=== PATIENT | male | born 1960 | race Caucasian/White ===

== ENCOUNTER → 2023-10-01 | Emergency (ER) | payer OTHER ==
[~2023-10-01] MED LIST: ASPIRIN 81 MG CHEWABLE TABLET ONE; CLOPIDOGREL 75 MG TABLET ONE; HEPARIN 5000 UNIT/ML 1 ML VIAL ONE; HEPARIN/D5W 25,000 UNIT/500 ML BAG IV ONE; MORPHINE 4 MG/ML SYR ONE; NA CHLORIDE 0.9% 1,000 ML ONE; ONDANSETRON 4 MG/2 ML VIAL ONE; TENECTEPLASE 50 MG/10 ML VIAL IV ONE
--- OUTSIDE RECORDS SUMMARY | 2023-10-01 00:10 | XMS REPORT | Continuity of Care Document ---
Author Name Unknown Address [address] [address] [address] [place] [address] [facility] Address [address] [address] [address] [place] [address] Care Team Providers Care Clinical Research Manager Name Role Phone Unavailable Unavailable Unavailable Problems Condition Name Condition Details Condition Category Status Onset Date Resolution Date Last Treatment Date Treating Clinician Comments Source Memory loss Memory loss Problem Active [facility] Attention deficit hyperactiv ity disorder (ADHD), predominan tly hyperactiv e type Attention deficit hyperactiv ity disorder (ADHD), predominan tly hyperactiv e type Problem Active [facility] Sinus problem Sinus problem Problem Active [facility] Depression with anxiety Depression with anxiety Problem Active [facility] Anxiety Anxiety Problem Active [facility] Disturbed concentrat ion Disturbed concentrat ion Problem Active [facility] Hypertensi on Hypertensi on Problem Active [facility] Medications Ordered Medication Name Filled Medication Name Start Date Stop Date Current Medication? Ordering Clinician Indication Dosage Frequency Signature (SIG) Comments Components Source Propranolol HCl Propranolol HCl 03-28 00:00: 00 Yes Rekha Banks 1 tablet on an empty stomach [facility] Simvastatin Simvastatin 405 00:00: 00 Yes Rekha Banks 1 tablet in the evening [facility] Amlodipine Besy-Benaze pril HCl Amlodipine Besy-Benaze pril HCl Yes Rekha Banks take 1 capsule by mouth once daily [facility] Paxil Paxil Yes Rekha Banks 1 tablet in the morning [facility] Strattera Strattera Yes Rekha Banks 1 capsule in the morning [facility] Encounters Start Date/Time End Date/Time Encounter Type Admission Type Attending Clinicians Care Facility Care Department Encounter ID Source 2019-03-28 08:40:00 2019-03-28 08:40:00 [facility] [id number] [facility] 2018-12-27 16:02:00 2018-12-27 16:02:00 [facility] [id number] [facility] 2018-12-18 15:30:00 2018-12-18 15:30:00 [facility] [id number] [facility] 2018-10-17 15:30:00 2018-10-17 15:30:00 [facility] [id number] [facility] 2018-03-11 16:00:00 2018-03-11 16:00:00 [facility] [id number] [facility] 2018-02-07 16:00:00 2018-02-07 16:00:00 [facility] [id number] [facility]
--- NOTE | 2023-10-01 00:34 | EDPHYS ---
Physician Documentation [facility] Name: Humble Biggs Age: 63 yrs Sex: Male : 1960 Arrival Date: 10/01/2023 Time: 00:07 Bed 18 Private MD: ED Physician Jose Yee HPI: 10/01 00:22 This 63 yrs old Male presents to ER via Wheelchair with complaints of stemi. jonny 00:22 The patient or guardian reports chest pain that is located primarily in the substernal jonny area. Onset: just prior to arrival. The pain radiates to the left arm, Associated signs and symptoms: Pertinent positives: nausea. The chest pain is described as a heaviness, a pressure. Modifying factors: The symptoms are alleviated by nothing. the symptoms are aggravated by nothing. Severity of pain: At its worst the pain was severe in the emergency department the pain is unchanged. The patient has not experienced similar symptoms in the past. Historical: - Allergies: 00:17 No Known Allergies; lg3 - Home Meds: 00:17 None [Active]; lg3 - PMHx: 00:17 Hypertensive disorder; lg3 - PSHx: 00:17 None; lg3 - Immunization history:: Adult Immunizations up to date, Client reports receiving the 2nd dose of the Covid vaccine, Flu vaccine is not up to date. - Social history:: Smoking status: Patient denies any tobacco usage or history of. Patient/guardian denies using alcohol, street drugs. - Family history:: not pertinent. ROS: 00:22 Constitutional: Negative for fever, chills, and weight loss, Eyes: Negative for injury, jonny pain, redness, and discharge, ENT: Negative for injury, pain, and discharge, Neck: Negative for injury, pain, and swelling, Respiratory: Negative for shortness of breath, cough, wheezing, and pleuritic chest pain, Abdomen/GI: Negative for abdominal pain, nausea, vomiting, diarrhea, and constipation, Back: Negative for injury and pain, : Negative for injury, bleeding, discharge, and swelling, MS/Extremity: Negative for injury and deformity, Skin: Negative for injury, rash, and discoloration, Neuro: Negative for headache, weakness, numbness, tingling, and seizure, Psych: Negative for depression, anxiety, suicide ideation, homicidal ideation, and hallucinations, Allergy/Immunology: Negative for hives, rash, and allergies, Endocrine: Negative for neck swelling, polydipsia, polyuria, polyphagia, and marked weight changes, Hematologic/Lymphatic: Negative for swollen nodes, abnormal bleeding, and unusual bruising, 00:22 Cardiovascular: Positive for chest pain, of the chest, Exam: 00:22 Head/Face: Normocephalic, atraumatic. Eyes: Pupils equal round and reactive to light, jonny extra-ocular motions intact. Lids and lashes normal. Conjunctiva and sclera are non-icteric and not injected. Cornea within normal limits. Periorbital areas with no swelling, redness, or edema. ENT: Nares patent. No nasal discharge, no septal abnormalities noted. Tympanic membranes are normal and external auditory canals are clear. Oropharynx with no redness, swelling, or masses, exudates, or evidence of obstruction, uvula midline. Mucous membranes moist. Neck: Trachea midline, no thyromegaly or masses palpated, and no cervical lymphadenopathy. Supple, full range of motion without nuchal rigidity, or vertebral point tenderness. No Meningismus. Chest/axilla: Normal chest wall appearance and motion. Nontender with no deformity. No lesions are appreciated. Cardiovascular: Regular rate and rhythm with a normal S1 and S2. No gallops, murmurs, or rubs. Normal PMI, no JVD. No pulse deficits. Respiratory: Lungs have equal breath sounds bilaterally, clear to auscultation and percussion. No rales, rhonchi or wheezes noted. No increased work of breathing, no retractions or nasal flaring. Abdomen/GI: Soft, non-tender, with normal bowel sounds. No distension or tympany. No guarding or rebound. No evidence of tenderness throughout. Back: No spinal tenderness. No costovertebral tenderness. Full range of motion. Male : Normal genitalia with no discharge or lesions. Skin: Warm, dry with normal turgor. Normal color with no rashes, no lesions, and no evidence of cellulitis. MS/ Extremity: Pulses equal, no cyanosis. Neurovascular intact. Full, normal range of motion. Neuro: Awake and alert, GCS 15, oriented to person, place, time, and situation. Cranial nerves II-XII grossly intact. Motor strength 5/5 in all extremities. Sensory grossly intact. Cerebellar exam normal. Normal gait. Psych: Awake, alert, with orientation to person, place and time. Behavior, mood, and affect are within normal limits. 00:22 Constitutional: The patient appears in obvious distress, moderately distressed, 00:33 ECG was reviewed by the Attending Physician. jonny 00:34 ECG was reviewed by the Attending Physician. [facility] Vital Signs: 00:15 BP 158 / 105; Pulse 83; Resp 24; Temp 98.7(O); Pulse Ox 98% on 2 lpm NC; Weight 80.74 lg3 kg (M); Height 5 ft. 9 in. (R); Pain 6/10; 00:15 Body Mass Index 26.29 (80.74 kg, 175.26 cm) lg3 00:15 Pain Scale: Adult lg3 MDM: 00:15 Patient medically screened. jonny 00:27 Differential diagnosis: abnormal EKG, acute myocardial infarction, acute pericarditis, jonny anxiety, coronary artery disease chest wall pain, congestive heart failure costochondritis, esophagitis, peptic ulcer disease, pneumonia, pulmonary embolus, stable angina, thoracic aortic disection, unstable angina. HEART Score: History: Highly Suspicious (2), ECG: Significant ST-deviation (2), Age: > or = 65 years (2), Risk Factors: > or = 3 Risk factors for atherosclerotic disease (2), [Hypercholesterolemia] [Hypertension] [+ Family HX] Troponin: < or = 1 x Normal Limit (0). The patient was given aspirin in the Emergency Department. VALERY Risk Score: 1 - patient's age is greater or equal to 65 years, 1 - Three or more CAD risk factors, 1 - ASA use in past 7 days, 1 - Recent [<24hrs] Severe Angina, 1 - ST deviation >0.5mm, TOTAL SCORE =. Data reviewed: vital signs, nurses notes, lab test result(s), EKG, radiologic studies. Consideration of Admission/Observation Escalation of care including admission/observation considered. I considered the following discharge prescriptions or medication management in the emergency department Medications were administered in the Emergency Department. See MAR. Test considered but Not performed: CT: no ct chest. 10/01 00:12 Order name: Basic Metabolic Panel kb 10/01 00:12 Order name: CBC with Diff kb 10/01 00:12 Order name: Magnesium kb 10/01 00:12 Order name: NT PRO-BNP kb 10/01 00:12 Order name: PT-INR kb 10/01 00:12 Order name: Troponin HS kb 10/01 00:12 Order name: Ptt, Activated kb 10/01 00:12 Order name: XRAY Chest (1 view) kb 10/01 00:12 Order name: EKG; Complete Time: 00:12 kb 10/01 00:12 Order name: Cardiac monitoring; Complete Time: : kb 10/01 00:12 Order name: EKG - Nurse/Tech; Complete Time: : kb 10/01 00:12 Order name: IV Saline Lock; Complete Time: : kb 10/01 00:12 Order name: Labs collected and sent; Complete Time: kb 10/01 00:12 Order name: O2 Per Protocol; Complete Time: kb 10/01 00:12 Order name: O2 Sat Monitoring; Complete Time: : kb 10/01 00:20 Order name: IV Saline Lock - Large Bore; Complete Time: 00:25 jonny 10/01 00:20 Order name: NPO; Complete Time: 00:36 jonny EC:33 Rate is 77 beats/min. Rhythm is regular. QRS [place] is Normal. OR interval is normal. QRS jonny interval is normal. QT interval is normal. No Q waves. T waves are Normal. ST Segment is elevated in leads II, III, aVF, V5, V6. Clinical impression: Inferior MS - acute. Interpreted by me. Reviewed by me. 00:34 Rate is 84 beats/min. Rhythm is regular. QRS [place] is Normal. OR interval is normal. QRS jonny interval is normal. QT interval is normal. No Q waves. T waves are Normal. T waves are Inverted in leads V1, V2, V3. ST Segment is elevated in leads II, III, aVF. Clinical impression: Inferior MS - acute. Interpreted by me. Reviewed by me. Administered Medications: 00:20 Drug: Aspirin PO Chewable Tablet 324 mg PO once; 81 mg tablets x 4 Route: PO; lg3 00:44 Follow up: Response: No adverse reaction lg3 00:21 Drug: Clopidogrel PO 300 mg PO once Route: PO; lg3 00:44 Follow up: Response: No adverse reaction lg3 00:21 Drug: morphine IVP or IV 4 mg IVP once over 4 mins Route: IVP; Infused Over: 4 mins; lg3 Site: right antecubital; 00:44 Follow up: Response: No adverse reaction lg3 00:21 Drug: Ondansetron IVP 4 mg IVP once; over 2 minutes Route: IVP; Site: right antecubital;lg3 00:44 Follow up: Response: No adverse reaction lg3 00:25 Drug: Tenecteplase IV 45 mg IV at per protocol once {Co-Signature: pf1 (Myriam Logan 3 RN).} Route: IV; Rate: per protocol; Site: right antecubital; 00:46 Follow up: Response: No adverse reaction; IV Status: Completed infusion; IV Intake: lg3 4.5ml 00:28 Drug: Heparin (MS-Bolus with thrombolytic) - HEParin IVP 60 units/kg IVP once; Max 4000 lg3 units {Co-Signature: cm10 (Sapna Tomas RN).} Route: IVP; Site: left antecubital; 00:44 Follow up: Response: No adverse reaction lg3 00:36 Drug: Heparin ([place] Drip) 12 units/kg/[place] - ([place] [address] units, D5W IV 500 ml) IV at lg3 calculated rate Per protocol; Max initial rate 1000 units/hr {Co-Signature: jb4 (Rogers Morris RN).} Route: IV; Rate: calculated rate; Site: right antecubital; 00:44 Follow up: IV Status: Infusion continued upon transfer lg3 00:36 Drug: NS 0.9% IV 1000 ml IV at 1 bolus Per protocol; 1000 mL bolus Route: IV; Rate: 1 lg3 bolus; Site: left antecubital; 00:44 Follow up: IV Status: Infusion continued upon transfer lg3 Disposition Summary: 10/01/23 00:33 Transfer Ordered Notes: Transfer Location: [facility] jonny Reason: Higher level of care jonny Condition: Stable jonny Problem: new jonny Symptoms: have improved jonny Accepting Physician: to [facility](10/01/23 00:46) lg3 Diagnosis - ST elevation (STEMI) myocardial infarction involving other coronary artery of jonny inferior wall - ST elevation (STEMI) myocardial infarction of inferior wall - RCA jonny - Essential (primary) hypertension jonny Forms: - Medication Reconciliation Form jonny - SBAR form jonny Signatures: Dispatcher [employer] Dianne Doty, FLOOR BROKER-C FLOOR BROKER-Jose Givens MD MD cha Able, Lacie, RN RN lg3 Myriam Logan RN pf1 Sapna Tomas RN cm10 Rogers Morris RN jb4 Corrections: (The following items were deleted from the chart) 00:46 00:[address] [facility] jonny lg3
--- NOTE | 2023-10-01 00:34 | ER ---
Nurse's Notes [facility] Name: Humble Biggs Age: 63 yrs Sex: Male : 1960 Arrival Date: 10/01/2023 Time: 00:07 Bed 18 Private MD: Diagnosis: ST elevation (STEMI) myocardial infarction involving other coronary artery of inferior wall;ST elevation (STEMI) myocardial infarction of inferior wall-RCA;Essential (primary) hypertension Presentation: 10/01 00:15 Chief complaint: Patient states: 1900 new onset indigestion. 2300 center CP radiating lg3 to bilateral arms, SOB and dizziness. Coronavirus screen: Client denies travel out of the [place] in the last 14 days. At this time, the client does not indicate any symptoms associated with coronavirus-19. Ebola Screen: No symptoms or risks identified at this time. Initial Sepsis Screen: Does the patient meet any 2 criteria? No. Patient's initial sepsis screen is negative. Does the patient have a suspected source of infection? No. Patient's initial sepsis screen is negative. Risk Assessment: Do you want to hurt yourself or someone else? Patient reports no desire to harm self or others. Onset of symptoms was September 30, 2022. 00:15 Method Of Arrival: Wheelchair lg3 00:15 Acuity: BLACK 2 lg3 Triage Assessment: 00:17 General: Appears distressed, uncomfortable, Behavior is calm, cooperative. Pain: lg3 Complains of pain in chest Pain radiates to right arm and left arm Pain currently is 6 out of 10 on a pain scale. Quality of pain is described as crushing, heavy, pressure. EENT: No deficits noted. No signs and/or symptoms were reported regarding the EENT system. Neuro: No deficits noted. Gavin Agitation-Sedation Scale (RASS): 0 - Alert and Calm Level of Consciousness is awake, alert, obeys commands, Oriented to person, place, time, situation. Cardiovascular: Reports chest pain, diaphoresis, lightheadedness, nausea, shortness of breath, Capillary refill < 3 seconds Clubbing of nail beds is absent JVD is absent Patient's skin is warm and dry. Respiratory: Airway is patent Respiratory effort is even, Respiratory pattern is tachypnea. GI: No deficits noted. Abdomen is flat, non-distended, Reports nausea. : No deficits noted. No signs and/or symptoms were reported regarding the genitourinary system. Derm: No deficits noted. No signs and/or symptoms reported regarding the dermatologic system. Skin is intact, is healthy with good turgor, Skin is dry, Skin is normal, Skin temperature is warm. Musculoskeletal: No deficits noted. No signs and/or symptoms reported regarding the musculoskeletal system. Circulation, motion, and sensation intact. Range of motion: intact in all extremities. Historical: - Allergies: 00:17 No Known Allergies; lg3 - Home Meds: 00:17 None [Active]; lg3 - PMHx: 00:17 Hypertensive disorder; lg3 - PSHx: 00:17 None; lg3 - Immunization history:: Adult Immunizations up to date, Client reports receiving the 2nd dose of the Covid vaccine, Flu vaccine is not up to date. - Social history:: Smoking status: Patient denies any tobacco usage or history of. Patient/guardian denies using alcohol, street drugs. - Family history:: not pertinent. Screenin:19 [facility] ED Fall Risk Assessment (Adult) History of falling in the last 3 months, lg3 including since admission No falls in past 3 months (0 pts). Abuse screen: Denies threats or abuse. Denies injuries from another. Nutritional screening: No deficits noted. Tuberculosis screening: No symptoms or risk factors identified. Assessment: 00:19 General: see triage assessment. lg3 00:45 Reassessment: No changes from previously documented assessment. Patient and/or family lg3 updated on plan of care and expected duration. Pain level reassessed. Patient is alert, oriented x 3, equal unlabored respirations, skin warm/dry/pink. Patient states symptoms have not improved. Vital Signs: 00:15 BP 158 / 105; Pulse 83; Resp 24; Temp 98.7(O); Pulse Ox 98% on 2 lpm NC; Weight 80.74 lg3 kg (M); Height 5 ft. 9 in. (R); Pain 6/10; 00:15 Body Mass Index 26.29 (80.74 kg, 175.26 cm) lg3 00:15 Pain Scale: Adult lg3 ED Course: 00:11 Patient arrived in ED. pm6 00:15 Jose Yee MD is Attending Physician. jonny 00:17 Triage completed. lg3 00:17 Arm band placed on right wrist. lg3 00:19 Patient has correct armband on for positive identification. Placed in gown. Bed in low lg3 position. Call light in reach. Side rails up X 1. Client placed on continuous cardiac and pulse oximetry monitoring. NIBP monitoring applied. radiation monitor on. Door closed. Noise minimized. Warm blanket given. Family accompanied patient. 00:19 Inserted saline lock: 18 gauge in right antecubital area, using aseptic technique. lg3 00:20 Inserted saline lock: 18 gauge in left antecubital area, using aseptic technique. lg3 00:27 XRAY Chest (1 view) In Process Unspecified. EDMS 00:45 No provider procedures requiring assistance completed. Patient transferred, IV remains lg3 in place. intact, No redness/swelling at site. Administered Medications: 00:20 Drug: Aspirin PO Chewable Tablet 324 mg PO once; 81 mg tablets x 4 Route: PO; lg3 00:44 Follow up: Response: No adverse reaction lg3 00:21 Drug: Clopidogrel PO 300 mg PO once Route: PO; lg3 00:44 Follow up: Response: No adverse reaction lg3 00:21 Drug: morphine IVP or IV 4 mg IVP once over 4 mins Route: IVP; Infused Over: 4 mins; lg3 Site: right antecubital; 00:44 Follow up: Response: No adverse reaction lg3 00:21 Drug: Ondansetron IVP 4 mg IVP once; over 2 minutes Route: IVP; Site: right antecubital;lg3 00:44 Follow up: Response: No adverse reaction lg3 00:25 Drug: Tenecteplase IV 45 mg IV at per protocol once {Co-Signature: pf1 (Myriam Logan 3 RN).} Route: IV; Rate: per protocol; Site: right antecubital; 00:46 Follow up: Response: No adverse reaction; IV Status: Completed infusion; IV Intake: lg3 4.5ml 00:28 Drug: Heparin (OH-Bolus with thrombolytic) - HEParin IVP 60 units/kg IVP once; Max 4000 lg3 units {Co-Signature: cm10 (Sapna Tomas RN).} Route: IVP; Site: left antecubital; 00:44 Follow up: Response: No adverse reaction lg3 00:36 Drug: Heparin ([place] Drip) 12 units/kg/[place] - ([place] [address] units, D5W IV 500 ml) IV at lg3 calculated rate Per protocol; Max initial rate 1000 units/hr {Co-Signature: jb4 (Rogers Morris RN).} Route: IV; Rate: calculated rate; Site: right antecubital; 00:44 Follow up: IV Status: Infusion continued upon transfer lg3 00:36 Drug: NS 0.9% IV 1000 ml IV at 1 bolus Per protocol; 1000 mL bolus Route: IV; Rate: 1 lg3 bolus; Site: left antecubital; 00:44 Follow up: IV Status: Infusion continued upon transfer lg3 Medication: 00:45 VIS not applicable for this client. lg3 Intake: 00:46 IV: 5ml; Total: 5ml. lg3 Outcome: 00:33 ER care complete, transfer ordered by . [facility] 00:45 [facility]red [facility] helicopter [facility] Transfer form completed. lg3 00:45 critical 00:45 Instructed on the need for transfer, Demonstrated understanding of instructions, 00:46 Patient left the ED. lg3 Signatures: Dispatcher [employer] EDJose Navarrete MD MD cha Able, Lacie, RN RN lg3 Cecilia Jiang pm6 Myriam Logan RN pf1 Sapna Tomas RN cm10 Rogers Morris RN jb4
[2023-10-01 01:03] LABS: Absolute Lymphocytes (CBC) 2.3 K/uL (0.7-4.9); Hematocrit 44.7 % (39.6-49.0); Lymphocytes % 27.6 % (15.3-44.8); MCV 85.5 fL (80-100); MPV 8.1 fL (7.6-11.3); Platelets 386 thou/uL (152-406); RBC Red Blood Cell Count 5.22 M/uL (4.33-5.43)
[2023-10-01 01:11] LABS: Protime INR 0.99
[2023-10-01 01:16] LABS: Magnesium 2.1 mg/dL (1.6-2.4); Potassium 3.1 mEq/L (3.5-5.1); Troponin High Sensitivity 40.9 pg/mL (<58.9)
[2023-10-01 02:57] VITALS: BP 158/105; TEMP 98.7; O2SAT 98
--- NOTE | 2023-10-01 08:12 | RAD REPORT ---
EXAM DESCRIPTION: Chest Single View CLINICAL HISTORY: 3 years Male, CHEST PAIN COMPARISON: None FINDINGS: No focal lung consolidation. No pleural effusion. No pneumothorax. Cardiomediastinal silhouette is within normal limits. No acute osseous abnormality. IMPRESSION: No acute cardiopulmonary disease. Electronically signed by: Yonatan Zepeda DO 10/01/2023 12:32 AM MEDICAID BUSINESS ANALYST Due to temporary technical issues with the PACS/Fluency reporting system, reports are being signed by the in house radiologist without review as a courtesy to ensure prompt reporting. The interpreting r adiologist is fully responsible for the content of the report.
--- NOTE | 2023-10-01 12:20 | EKG ---
Test Date: 2023-10-01 Test Time: 00:09:50 Elocution Teacher: MAKSIM MEASUREMENT RESULTS: Intervals: Rate: 77 GA: 156 QRSD: 106 QT: 394 QTc: 445 [place]: P: 71 GA: 156 QRS: 47 T: 88 INTERPRETIVE STATEMENTS: Normal sinus rhythm ST elevation, consider inferior injury or acute infarct ACUTE SC Consider right ventricular involvement in acute inferior infarct Abnormal ECG No previous ECG available for comparison Electronically Signed On 10-01-23 12:18:54 BALE SEWER by Gerry Huynh
--- NOTE | 2023-10-01 12:20 | EKG ---
Test Date: 2023-10-01 Test Time: 00:26:32 Medical Appliance Maker: MAKSIM MEASUREMENT RESULTS: Intervals: Rate: 84 NM: 160 QRSD: 78 QT: 388 QTc: 458 [place]: P: 75 NM: 160 QRS: 53 T: 83 INTERPRETIVE STATEMENTS: Normal sinus rhythm ST elevation, consider inferolateral injury or acute infarct ACUTE SC Consider right ventricular involvement in acute inferior infarct Abnormal ECG Compared to ECG 10/01/2023 00:09:50 No significant changes Electronically Signed On 10-01-23 12:18:49 JACQUARD PLATE MAKER by Gerry Huynh
== END ==
LOC: ER 00:07
DX: I21.19 ST elevation (STEMI) myocardial infarction involving other coronary artery of inferior wall (principal); I10 Essential (primary) hypertension
CPT/HCPCS: 92977; 93005 ×2; 85025; 80048; 36415; 83735; 85610; 85730; 84484; 83880; 71045; 99285; 96375; J1644; J3101; J2405; J7030